=== PATIENT | female | born 1955 | race Caucasian/White ===

== ENCOUNTER → 2017-01-18 | Outpatient (CLI) | payer OTHER | LOC: CIMAGING 12:27 | DX: Z12.31 Encounter for screening mammogram for malignant neoplasm of breast (principal) | CPT/HCPCS: G0202 ==

== ENCOUNTER → 2017-02-23 | Outpatient (CLI) | payer OTHER | LOC: CIMAGING 12:44 | DX: N63 Unspecified lump in breast (principal) | CPT/HCPCS: 76641-PO; G0206 ==

== ENCOUNTER → 2017-03-28 | Outpatient (CLI) | payer OTHER ==
[~2017-03-28] MED LIST: BUPIVACAINE 0.5% 10 ML SDV ONE; LIDO/EPI 1% **Not for Epidural 20 ML MDV ONE; LIDOCAINE 1% 300 MG/30 ML SDV ONE; THROMBIN (BOVINE) 5,000 UNIT VIAL TP ONE
== END ==
LOC: FIMAGING 08:27
PROVIDERS: ATTEND Family Medicine
PROC: 0HBU3ZX Excision of Left Breast, Percutaneous Approach, Diagnostic (ICD-10-PCS; principal; 2017-03-28)
DX: D05.12 Intraductal carcinoma in situ of left breast (principal)
CPT/HCPCS: G0206

== ENCOUNTER 2017-04-04 06:26 | Day surgery (SDC) | payer OTHER ==
[2017-04-04] MEDS ORDERED: LIDOCAINE 1% 2 ML INJ ONE (07:27)
[2017-04-04] MEDS ORDERED: LIDOCAINE 1% 2 ML INJ ID PRN (07:36)
[2017-04-04] MEDS ORDERED: LR 1,000 ML IV ONE (07:36)
[2017-04-04] MEDS ORDERED: LIDOCAINE 1% 300 MG/30 ML SDV ONE (07:39)
--- NOTE | 2017-04-04 08:12 | GHP ---
[f rep st] PREOP HISTORY AND PHYSICAL DATE OF ADMISSION: 04/04/2017 PREOPERATIVE DIAGNOSIS: Left breast cancer. HISTORY OF PRESENT ILLNESS: The patient is a 62-year-old woman who presented with a new diagnosis o f left breast cancer. A suspicious lesion of the left upper outer breast was seen on screening mamm ogram on 01/16/2017. Diagnostic mammogram and ultrasound on 02/23/2017 showed a correlating nodule in the 12 o'clock position 1 cm from the nipple. 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 She has a family history of breast cancer in her maternal grandmother, who was diagnosed at age 80. Her mother had uterine cancer. Her father had esophageal cancer. She first menstruated at age 12, last menses at age 51. She has never taken hormone replacement therapy. She is G3, P1, age 24 at her first . PAST MEDICAL HISTORY: Depression, hyperlipidemia, hypertension, insomnia, ALLERGIES: No known drug allergies. FAMILY HISTORY: As above. Also significant for heart disease. SOCIAL HISTORY: She reports occasional alcohol use. She denies current tobacco or recreational tyson g use. She is with 1 daughter. REVIEW OF SYSTEMS: A 10-point review of systems is negative aside from HPI. PHYSICAL EXAMINATION: GENERAL: Well-developed, well-nourished woman in no acute distress, accompan ied by . HEENT: Normocephalic, atraumatic. No hearing deficits. Pupils equal and round. No scleral icterus. Mucous membranes moist. NECK: Trachea midline. RESPIRATORY: Clear to auscul tation bilaterally. No increased work of breathing. CARDIOVASCULAR: Regular rate and rhythm. No peripheral edema. SKIN: Warm and dry. MUSCULOSKELETAL: Normal gait. Normal nails. PSYCH: Mood and affect normal. BREASTS: Exam performed in both upright and supine positions. Symmetric bilat erally. Evidence of biopsy of left superior breast. Good symmetry. No palpable masses identified. LYMPH: No cervical, supraclavicular, axillary lymphadenopathy. NEURO: Grossly intact. IMPRESSION AND PLAN: The patient is a 62-year-old woman with a left breast invasive ductal carcinom a of the upper outer quadrant. We discussed lumpectomy with sentinel lymph node biopsy. We discuss ed risks of surgery including but not limited to heart attack, stroke, blood clots, or . We di scussed risk of infection, bleeding, alteration in cosmesis, recurrence, need for additional procedu res, and lymphedema. She understands the risks and would like to proceed. She understands that if the sentinel lymph node biopsy is positive, then an axillary dissection is indicated. She does not want a preop MRI or genetic counseling. She will be seen by Dr. Booth postoperatively. The [facility] ent was additionally seen by Dr. Melissa Bazzi. /[id number]/MODL
[2017-04-04] MEDS ORDERED: BUPIVACAINE 0.5% 30 ML SDV ONE (10:32)
[2017-04-04] MEDS ORDERED: ceFAZolin 2 GM/DEXTROSE 100 ML IV ONE (10:41)
--- NOTE | 2017-04-04 11:22 | PDHPUP ---
History & Physical Update H&P update statement: This history and physical update is based on an assessment of the patient which was completed after admission or registration (within 24 hours), but prior to the surgery/procedure. H&P update: H&P reviewed & patient examined, no change in patient's condition since H&P completed
[2017-04-04] MEDS ORDERED: MIDAZOLAM 2 MG/2 ML VIAL IVP ONE (11:50)
--- NOTE | 2017-04-04 11:50 | PDANEPAE ---
ANE History of Present Illness breast mass excision ANE Past Medical History - Cardiovascular History Hx Hypertension: Yes Hx Arrhythmias: Yes Hx Chest Pain: No Hx Coronary Artery / Peripheral Vascular Disease: No Hx CHF / Valvular Disease: No Hx Palpitations: Yes - Pulmonary History Hx COPD: No Hx Asthma/Reactive Airway Disease: No Hx Recent Upper Respiratory Infection: No Hx Oxygen in Use at Home: No Hx Sleep Apnea: No - Neurologic History Hx Cerebrovascular Accident: No Hx Seizures: No Hx Dementia: No - Endocrine History Hx Diabetes: No - Renal History Hx Renal Disorders: No - Liver History Hx Hepatic Disorders: No - Neurological & Psychiatric Hx Hx Neurological and Psychiatric Disorders: Yes Neurological / Psychiatric History Comment: Depression/anxiety - Cancer History Hx Cancer: No - Congenital Disorder History Hx Congenital Disorders: No - GI History Hx Gastrointestinal Disorders: No - Chronic Pain History Chronic Pain: No - Surgical History Prior Surgeries: Laparoscopy, ANE Review of Systems - Exercise capacity METS (RN): 5 METS ANE Patient History - Allergies Allergies/Adverse Reactions: No Known Allergies Allergy (Unverified 04/14/15 12:56) - Home Medications Home Medications: Chlorthalidone [Chlorthalidone 25 mg (*)] 12.5 mg PO DAILY 04/04/17 [Last Taken 04/03/17] DULoxetine [Cymbalta 60 MG (*)] 60 mg PO DAILY 04/04/17 [Last Taken 04/03/17] Herbals/Supplements -Info Only 1 ea PO DAILY 04/04/17 [Last Taken 04/03/17] Loratadine [Claritin 10 mg] 10 mg PO DAILY 04/04/17 [Last Taken 04/03/17] Losartan Potassium [Cozaar] 100 mg PO DAILY 04/04/17 [Last Taken 04/03/17] Metoprolol Succinate Xr [Toprol Xl 50 mg (*)] 50 mg PO DAILY 04/04/17 [Last Taken 04/03/17] Multivitamin [Multi-Vitamin Daily] 1 each PO DAILY 04/04/17 [Last Taken 04/03/17 ] Zolpidem Tartrate [Ambien 10 mg] 10 mg PO HS 04/04/17 [Last Taken 04/03/17 22:00 ] - NPO status NPO Since - Liquids (Date): 04/03/17 NPO Since - Liquids (Time): 23:00 NPO Since - Solids (Date): 04/03/17 NPO Since - Solids (Time): 22:00 - Anes Hx Anes Hx: no prior problems - Smoking Hx Smoking Status: Former smoker - Family Anes Hx Family Hx Anesthesia Complications: None ANE Labs/Vital Signs - Vital Signs Blood Pressure: 148/94 Heart Rate: 58 Respiratory Rate: 18 O2 Sat (%): 92 Height: 167.64 cm Weight: 93.894 kg ANE Physical Exam - Airway Mallampati Score: Class 2 Mouth exam: normal dental/mouth exam - Pulmonary Pulmonary: no respiratory distress - Cardiovascular Cardiovascular: regular rate and rhythym - ASA Status ASA Status: II ANE Anesthesia Plan Anesthesia Plan: GA w LMA
[2017-04-04] MEDS ORDERED: ONDANSETRON 4 MG/2 ML VIAL ONE (11:54)
[2017-04-04] MEDS ORDERED: DEXAMETHASONE 4 MG/ML VIAL ONE (11:54)
[2017-04-04] MEDS ORDERED: KETOROLAC 30 MG/1 ML SDV ONE (11:54)
[2017-04-04] MEDS ORDERED: PROPOFOL 200 MG/20 ML VIAL ONE (11:55)
[2017-04-04] MEDS ORDERED: LIDOCAINE 2% 5 ML SDV ONE (11:55)
[2017-04-04] MEDS ORDERED: fentaNYL 100 MCG/2 ML INJ ONE (11:55)
[2017-04-04] MEDS ORDERED: HYDROmorphONE/DILAUDID 1 MG/ML SYR IVP PRN (12:26)
[2017-04-04] MEDS ORDERED: fentaNYL 100 MCG/2 ML INJ IVP PRN (12:26)
[2017-04-04] MEDS ORDERED: MEPERIDINE 25 MG/ML SYR IVP PRN (12:26)
[2017-04-04] MEDS ORDERED: NALOXONE HCL 0.4 MG/ML INJ IVP PRN (12:26)
[2017-04-04] MEDS ORDERED: LR 500 ML IV PRN (12:26)
[2017-04-04] MEDS ORDERED: ONDANSETRON 4 MG/2 ML VIAL IVP PRN (12:26)
[2017-04-04] MEDS ORDERED: epHEDrine SULFATE 10 MG/ML SYR ONE (12:50)
--- NOTE | 2017-04-04 13:00 | POSTOPPROG ---
Post Op Note Date of Operation: 04/04/17 Surgeon: Melissa Bazzi [employer] Dispatcher: denita Anesthesiologist: adia Anesthesia: GET(General Endotracheal) Pre-op Diagnosis: l invasive ductal breast ca Post-op Diagnosis: l invasive ductal breast ca Indication: 62 yo with l breast cancer Procedure: l lumpectomy l sln Findings: target in the specimen Inf/Abcess present in the surg proc area at time of surgery?: No EBL: Minimal Specimen(s): lumpectomy and sln
--- NOTE | 2017-04-04 13:09 | POSTANESTH ---
Post Anesthetic Evaluation Cardiovascular Status: Normal, Stable Respiratory Status: Normal, Stable Level of Consciousness/Mental Status: Can Participate in Eval Pain Control: Adequate, Prn Tx Ordered Nausea/Vomiting Control: Adequate, Prn Tx Ordered Complications Possibly Related to Anesthesia: None Noted
[2017-04-04 14:04] VITALS: PULSE 65; TEMP 97.9
--- NOTE | 2017-04-04 14:13 | GOP ---
[f rep st] OPERATIVE REPORT DATE OF OPERATION: 04/04/2017 SURGEON: Melissa Bazzi MD CLERK ANALYST: Essence Bazan, HUAN ANESTHESIA: General. ANESTHESIOLOGIST: Javan Moreno MD PREOPERATIVE DIAGNOSIS: Left breast invasive ductal carcinoma upper outer quadrant POSTOPERATIVE DIAGNOSIS: Left breast invasive ductal carcinoma upper outer quadrant. PROCEDURE PERFORMED: Left needle localized lumpectomy, left sentinel lymph node. FINDINGS: Targeted area contained within specimen and negative sentinel lymph node. ESTIMATED BLOOD LOSS: 20 cc. INDICATIONS: The patient is a 62-year-old woman with left breast invasive ductal carcinoma. DESCRIPTION OF PROCEDURE: The patient was brought into the operating room, placed supine on the table, and general anesthesia was administered. Her breast and axilla were prepped and draped in the usual sterile fashion. I made an ellipse around the wire. I created superior and inferior skin flaps. I dissected down beyond the level of the wire. The specimen was removed. It was marked green anterior, red superior, yellow medial, blue inferior, orange lateral, black posterior. This was sent to Radiology and the targeted area was contained within the specimen. Hemostasis was achieved in the cavity. Next, I made an incision beneath the hair-bearing portion of her left axilla. I dissected down through the subcutaneous space. I broke into the axillary space. I used the sentinel node probe to identify the sentinel lymph node. I circumferentially dissected this. It measured greater than 1000 ex vivo and the background was quiet. Hemostasis was achieved. Next, I took margins from the lumpectomy cavity, superior ink red, medial ink yellow, inferior ink blue, lateral ink orange, posterior black. I was down to the level of the fascia. These were sent to Pathology for permanent. The sentinel lymph node returned negative. Clips were placed in the lumpectomy bed. The lumpectomy cavity was closed in layers with 3-0 Vicryl. Skin closed with 4-0 Monocryl. Mastisol, Steri-Strips, and sterile dressings were applied. She was awakened in the operating room, extubated, transferred to PACU in stable condition. I spoke with her by phone after the case. FINDINGS: Clip within the specimen. Negative lymph node. /[id number]/MODL MTDD
[2017-04-04 15:17] VITALS: BP 131/78; RESP 16; O2SAT 91
== END 2017-04-04 15:20 | disposition home or self-care (01) ==
LOC: FIMAGING 06:26
PROVIDERS: ATTEND Surgery
PROC: 07B63ZX Excision of Left Axillary Lymphatic, Percutaneous Approach, Diagnostic (ICD-10-PCS; principal; 2017-04-04 12:00)
PROC: 0HBU3ZZ Excision of Left Breast, Percutaneous Approach (ICD-10-PCS; principal; 2017-04-04 12:00)
DX: C50.412 Malignant neoplasm of upper-outer quadrant of left female breast (principal); Z80.3 Family history of malignant neoplasm of breast; I10 Essential (primary) hypertension; E78.5 Hyperlipidemia, unspecified
CPT/HCPCS: A9520; J0690; J1100; J1885; J2250; J2405; J2704; J3010

== ENCOUNTER 2017-07-30 01:16 | Inpatient (IN) | payer OTHER ==
[2017-07-30] MEDS ORDERED: NS 2,800 ML IV ONE ×2 (01:48)
[2017-07-30] MEDS ORDERED: PROMETHAZINE HCL 25 MG/ML INJ IVP ONE ×2 (01:50)
--- NOTE | 2017-07-30 01:55 | EDPHY ---
H & P Stated Complaint: fever, syncope, vomiting Time Seen by Provider: 07/30/17 01:27 HPI/ROS: HPI The patient presents with fever, cough, sore throat, vomiting, syncope. She had chemo on July 18 and since then has not been feeling well. She has had some vomiting and syncope. Then over the last 2 days she developed a fever with T-max of 102.4 degrees F. She took Tylenol about 2 hours ago. She has had a sore throat, hoarse voice, cough productive of sputum in a similar time course. She says she is spitting up quite a bit and is unable to keep much fluid down. She says when she spits up like this she gets lightheaded and has syncopized about 4 times in the last 10 days, most recently had an episode in which she awoke with her head in her emesis bucket. She has not had a flu shot this year. She denies any sick contacts except for a friend that brought food over to her house. She has been taking Compazine, Zofran, Phenergan for vomiting, however her vomiting persists. Yesterday, she was prescribed Augmentin for her fever by Dr. Romero credit collection specialist for Dr. Booth. REVIEW OF SYSTEMS Constitutional: No fever, no chills. Eyes: No discharge. ENT: No sore throat. Cardiovascular: No chest pain, no palpitations. Respiratory: No cough, no shortness of breath. Gastrointestinal: No abdominal pain, no vomiting. Genitourinary: No hematuria. Musculoskeletal: No back pain. Skin: No rashes. Neurological: No headache. PMHx: Breast cancer on chemotherapy, hypertension, depression Soc Hx: Lives at home with her partner PHYSICAL General Appearance: Alert, pale and tired appearing Eyes: Pupils equal and round no pallor or injection ENT, Mouth: Mucous membranes moist, posterior pharynx is pale, no exudates are present Respiratory: There are no retractions, lungs are clear to auscultation Cardiovascular: Regular rate and rhythm Gastrointestinal: Abdomen is soft and non-tender, no masses, bowel sounds normal Neurological: A&O, moves all extremities Skin: Warm and dry, no rashes Musculoskeletal: Neck is supple non tender Extremities: symmetrical, full range of motion Psychiatric: Patient is oriented X 3, there is no agitation Source: Patient Exam Limitations: No limitations - Personal History Tetanus Vaccine Date: WITHIN 10 YRS - Medical/Surgical History Hx Asthma: No Hx Chronic Respiratory Disease: No Hx Diabetes: No Hx Cardiac Disease: No Hx Renal Disease: No Hx Cirrhosis: No Hx Alcoholism: No Hx HIV/AIDS: No Hx Splenectomy or Spleen Trauma: No Other PMH: HTN, DEPRESSION, breast ca - Social History Smoking Status: Former smoker Constitutional: Initial Vital Signs Temperature (C) 38.4 C H 07/30/17 01:21 Heart Rate 95 07/30/17 01:21 Respiratory Rate 20 07/30/17 01:21 Blood Pressure 119/73 07/30/17 01:21 O2 Sat (%) 95 07/30/17 01:21 O2 Delivery Mode Nasal Cannula O2 (L/minute) 2 Allergies/Adverse Reactions: No Known Allergies Allergy (Unverified 07/30/17 01:19) Home Medications: Medication Instructions Recorded Chlorthalidone [Chlorthalidone 25 12.5 mg PO DAILY 04/04/17 mg (*)] DULoxetine [Cymbalta 60 MG (*)] 60 mg PO DAILY 04/04/17 Herbals/Supplements -Info Only 1 ea PO DAILY 04/04/17 Hydrocodone/APAP 5/325 [[place] 1 each PO Q4H PRN #15 tab 04/04/17 5/325 (*)] LORazepam [Ativan] 1 mg PO BID PRN #30 tablet 04/04/17 Loratadine [Claritin 10 mg] 10 mg PO DAILY 04/04/17 Losartan Potassium [Cozaar] 100 mg PO DAILY 04/04/17 Metoprolol Succinate Xr [Toprol Xl 50 mg PO DAILY 04/04/17 50 mg (*)] Multivitamin [Multi-Vitamin Daily] 1 each PO DAILY 04/04/17 Zolpidem Tartrate [Ambien 10 mg] 10 mg PO HS 04/04/17 Medical Decision Making - Diagnostics EKG Interpretation: EKG: Complete interpretation has been separately recorded in the [employer] archive. Summary impression: T-wave flattening in 2, 3, V4 through V6 Imaging Results: Chest x-ray two view shows no infiltrate, no cardiomegaly, no effusion, interpreted by me, radiology interpretation is pending. Differential Diagnosis: 62-year-old female, history of breast cancer on chemotherapy, last chemotherapy about 12 days ago presents with 2 days of fever, cough, hoarseness, vomiting and multiple syncopal episodes. On arrival, she is febrile, mildly tachycardic , appears dehydrated. Differential diagnosis includes neutropenic fever, influenza, pneumonia, intra- abdominal sepsis, viral illness. In the emergency department, the patient was given a fluid bolus. She was given Phenergan for her nausea. Labs were checked and did reveal neutropenia with mild dehydration. Influenza PCR was negative. Chest x-ray was unremarkable for infiltrate. The patient felt better after receiving IV fluids, because of her neutropenia, she was given a dose of cefepime. I plan to admit her to the hospitalist service and discussed the case with Dr. Portillo. - Data Points Laboratory Results: Laboratory Results 07/30/17 01:40 07/30/17 01:40 07/30/17 07/30/17 07/30/17 02:25 01:40 01:40 WBC RBC Hgb Hct MCV MCH MCHC RDW Plt Count MPV Neut % (Auto) Lymph % (Auto) [place] % (Auto) Eos % (Auto) Baso % (Auto) Nucleat RBC Rel Count Absolute Neuts (auto) Absolute Lymphs (auto) Absolute Monos (auto) Absolute Eos (auto) Absolute Basos (auto) Absolute Nucleated RBC Immature Gran % Seg Neutrophils % Band Neutrophils % Lymphocytes % Monocytes % Immature Gran # Absolute Seg Neuts Absolute Band Neuts Absolute Lymphocytes Absolute Monocytes RBC/WBC/PLT Morphology Platelet Estimate Smear Review By [facility] Lactic Acid 1.4 mmol/L mmol/L (0.7-2.1) Sodium 139 mEq/L mEq/L (134-144) Potassium 3.4 mEq/L L mEq/L (3.5-5.2) Chloride 102 mEq/L mEq/L (97-110) Carbon Dioxide 21 mEq/l L mEq/l (22-31) Anion Gap 16 mEq/L mEq/L (8-16) BUN 14 mg/dL mg/dL (7-23) Creatinine 0.9 mg/dL mg/dL (0.6-1.0) Estimated GFR > 60 Glucose 116 mg/dL H mg/dL (70-100) Calcium 9.1 mg/dL mg/dL (8.5-10.4) Nasal Influenza A PCR NEGATIVE FOR FLU A (NEGATIVE) Nasal Influenza B PCR NEGATIVE FOR FLU B (NEGATIVE) 07/30/17 01:40 WBC 1.03 10^3/uL L 10^3/uL (3.80-9.50) RBC 4.00 10^6/uL L 10^6/uL (4.18-5.33) Hgb 12.4 g/dL L g/dL (12.6-16.3) Hct 35.7 % L % (38.0-47.0) MCV 89.3 fL fL (81.5-99.8) MCH 31.0 pg pg (27.9-34.1) MCHC 34.7 g/dL g/dL (32.4-36.7) RDW 13.8 % % (11.5-15.2) Plt Count 272 10^3/uL 10^3/uL (150-400) MPV 9.7 fL fL (8.7-11.7) Neut % (Auto) Not Reported Lymph % (Auto) Not Reported [place] % (Auto) Not Reported Eos % (Auto) Not Reported Baso % (Auto) Not Reported Nucleat RBC Rel Count 0.0 % % (0.0-0.2) Absolute Neuts (auto) Not Reported Absolute Lymphs (auto) Not Reported Absolute Monos (auto) Not Reported Absolute Eos (auto) Not Reported Absolute Basos (auto) Not Reported Absolute Nucleated RBC 0.00 10^3/uL 10^3/uL (0-0.01) Immature Gran % Not Reported Seg Neutrophils % 9 % % Band Neutrophils % 5 % % Lymphocytes % 32 % % Monocytes % 54 % % Immature Gran # Not Reported Absolute Seg Neuts 0.09 10^/uL L 10^/uL (1.70-6.50) Absolute Band Neuts 0.05 10^3/uL 10^3/uL (0.00-0.70) Absolute Lymphocytes 0.33 10^3/uL L 10^3/uL (1.00-3.00) Absolute Monocytes 0.56 10^3/uL 10^3/uL (0.30-0.80) RBC/WBC/PLT Morphology NORMAL (NORMAL) Platelet Estimate ADEQUATE (ADEQ) Smear Review By Pending VBG Lactic Acid Sodium Potassium Chloride Carbon Dioxide Anion Gap BUN Creatinine Estimated GFR Glucose Calcium Nasal Influenza A PCR Nasal Influenza B PCR Medications Given: Discontinued Medications Sodium Chloride (Ns) 2,800 mls @ 5,600 mls/hr 30 ml/kg infuse over 30 min ( 2800 ml) IV EDNOW ONE PRN Reason: Protocol Stop: 07/30/17 02:17 Last Admin: 07/30/17 02:09 Dose: 2,800 mls Ketorolac Tromethamine (Toradol) 15 mg IVP EDNOW ONE Stop: 07/30/17 03:06 Last Admin: 07/30/17 03:10 Dose: 15 mg Promethazine HCl (Phenergan) 12.5 mg IVP ONCE ONE Stop: 07/30/17 01:51 Last Admin: 07/30/17 02:01 Dose: 12.5 mg Departure - Departure Disposition: [facility] Inpatient Acute Clinical Impression: Neutropenic fever Condition: Fair Referrals: Scarlet Boudreaux MD [Primary Care Provider] - As per Instructions
[2017-07-30 02:02] LABS: PLATELET COUNT 272 10^3/uL (150-400)
[2017-07-30] MEDS ORDERED: CEFEPIME HCL 2 GM in D5W 100 ML IV ONE (03:01)
[2017-07-30] MEDS ORDERED: KETOROLAC 15 MG/1 ML SDV IVP ONE ×2 (03:05)
[2017-07-30] MEDS ORDERED: KETOROLAC 15 MG/1 ML SDV ONE ×2 (03:06)
--- NOTE | 2017-07-30 03:19 | CPEKG ---
Heart Rate: 83 RR Interval: 723 P-R Interval: 196 QRSD Interval: 90 QT Interval: 332 QTC Interval: 390 P [place]: 47 QRS [place]: 1 T Wave [place]: 47 EKG Severity - BORDERLINE ECG - EKG Impression: SINUS RHYTHM EKG Impression: BORDERLINE T ABNORMALITIES, ANT-LAT LEADS Electronically Signed By: Maine Encarnacion 30-Jul-2017 07:05:55
[2017-07-30] MEDS ORDERED: ONDANSETRON 4 MG/2 ML VIAL IVP PRN ×2 (04:18)
[2017-07-30] MEDS ORDERED: HYDROmorphONE/DILAUDID 1 MG/ML INJ IVP PRN ×2 (04:18)
[2017-07-30] MEDS ORDERED: LORazepam 2 MG/ML INJ IVP PRN ×2 (04:18)
[2017-07-30] MEDS: NS 1,000 ML IV SCH ×4 (05:23→15:46)
[2017-07-30] MEDS ORDERED: ZOLPIDEM TARTRATE 5 MG TAB PO PRN ×2 (05:33)
--- NOTE | 2017-07-30 06:46 | GHP ---
[f rep st] HISTORY AND PHYSICAL DATE OF ADMISSION: 07/30/2017 SOURCE: Patient provides history, appears reliable. Her EMR was also reviewed and case discussed wi th ED provider. CHIEF COMPLAINT: Nausea, vomiting, fever, and syncope. HISTORY OF PRESENT ILLNESS: This is a very pleasant 62-year-old female with past medical history sig nificant for invasive ductal carcinoma of the left breast, who is on her 3rd cycle of chemotherapy, w hich she cannot recall regimen. Presents with complaints of 1-2 days of fevers. The patient reports that her T-max at home was 102.4. She states that she has not been feeling well since her chemother apy on July 18. Patient notes fatigue, decreased appetite, nausea and vomiting, that has been d ifficult to control despite use of home medications including Compazine, Zofran, and Phenergan. The patient also notes cough, rhinorrhea, and sore throat with some laryngitis and hoarseness. She has a lso had a persistent cough that is productive of clear sputum. Also, in the last several weeks, [facility] ent reports episodes of syncope occurring while patient is either vomiting, in the process of vomitin g, or developing GI upset. The patient reports that she has fallen and hit the back of her head a we ek ago. She states that at that time she was also feeling nauseous, as though she was going to throw up. The patient denies any lightheadedness. She has been having some shortness of breath with cleo g up the stairs, but otherwise with ambulation. She does not report any other shortness of breath. The patient denies any known sick contacts. The day prior to admission, patient called the on-call patrick lay for [facility] and received a prescription for Augmentin, but she has not been able to keep any me dications down. REVIEW OF SYSTEMS: Positive for fevers. No chills or sweats. ENT: The patient reports sore throat , hoarseness. No current rhinorrhea. EYES: No acute changes in vision or ocular pain. SKIN: [facility] ent reports dermatitis at site of chemotherapy infusion, but no other rashes or sores. Patient repor ts this is healing and drying. GI: Positive for nausea, vomiting. No hematemesis, diarrhea, melena , or hematochezia. : No dysuria or hematuria. RESPIRATORY: As noted above in HPI. NEURO: Nonf ocal. No numbness, tingling, syncopal episodes as noted above. PSYCH: Patient reports history of a nxiety and depression, but this has been controlled. Remainder of review of systems negative, except as noted above. ALLERGIES: No known drug allergies. HOME MEDICATIONS: Reviewed with the patient. Ambien 10 mg p.o. at bedtime, acyclovir 400 mg p.o. tw ice daily, multivitamin 1 tab p.o. daily, metoprolol succinate 50 mg p.o. daily, losartan, potassium 100 mg p.o. daily, loratadine 10 mg p.o. daily, Lorazepam 1 mg p.o. twice daily p.r.n., [place] 5/325 o ne tablet p.o. q.4 hours p.r.n., Cymbalta 60 mg p.o. daily, and chlorthalidone 12.5 mg p.o. daily. PAST MEDICAL HISTORY: Invasive ductal carcinoma diagnosed in March 2017, status post lumpectomy on 3r d course of chemotherapy, benign essential hypertension, depression, and allergies. PAST SURGICAL HISTORY: Significant for lumpectomy in 2017 and history of colonoscopy. FAMILY HISTORY: Maternal grandmother with breast cancer in 80s. Family history of CAD. Mother with history of uterine cancer. Father with history of esophageal cancer. Daughter with history of ment al health and substance abuse issues. SOCIAL HISTORY: The patient is , lives at home with her . She has a remote history of tobacco use. Denies any current use. No alcohol or drug use. CODE STATUS: Full. Patient without advanced directives, but she would like her to act as pr oxy if needed. PHYSICAL EXAMINATION: VITAL SIGNS: Upon arrival to the ER, blood pressure 119/73, heart rate 95, re spiratory rate 20, O2 saturation 95% on room air with a temperature of 38.4. Vitals at time of inter view, blood pressure 120/69, heart rate 77, respiratory rate 16, O2 saturation 96% on 2 L by nasal ca nnula. GENERAL: No acute distress. Very pleasant adult female is lying in bed quietly, appears fat igued, pale, chronically ill, but in good spirits. HEENT: Normocephalic, atraumatic. Patient with thinned hair. EYES: Extraocular muscles grossly intact. No scleral icterus or conjunctival injecti on. Pupils equal and symmetric. ENT: Mucous membranes appear dry. No oropharyngeal erythema or ex udates. Dentition intact. NECK: Supple. Trachea midline. CV: Regular rate and rhythm. There is a very faint murmur along sternal border, but limited exam secondary to body habitus and heart rate. ABDOMEN: Obese, soft, nontender to palpation. No rebound, guarding, or masses appreciated. : No suprapubic tenderness to palpation. No Noriega catheter in place. EXTREMITIES/MUSCULOSKELETAL: Pa tient with generalized weakness, but moving all extremities. Sits up independently. NEURO: Grossly nonfocal. No facial drooping. Patient awake, alert, and oriented x3. Moves all extremities. PSYC H: Thought process content and questions are appropriate. Patient smiles intermittently. In good s pirits. LABORATORY STUDIES: WBC is 11.03, H and H 12.4 and 35.7, MCV 89.3, platelet count is 272. No bands. Absolute neutrophil count is 0.09. VBG, lactic acid 1.4. Sodium is 139, potassium 3.4, chloride 102, CO2 21, anion gap 16, BUN 14, creatinine is 0.9, GFR grea ter than 60, glucose 116, calcium 9.1. Urine color is clear, yellow, with pH of 6.0, specific gravit y 1.008, blood 1+, trace ketones, 3-5 RBCs with 1-3 WBCs, otherwise negative. Flu A/B is negative. Blood cultures x2 pending. Nasal swab for respiratory panel pending. Urine cl peter-catch culture pending. STUDIES: EKG I reviewed myself showing normal sinus rhythm in the 80s without any acute ST changes, nonspecific T-wave changes in the anterolateral leads. Chest x-ray I reviewed myself appears clear. ASSESSMENT AND PLAN: A very pleasant 62-year-old female with history of invasive ductal breast carci noma, who presents to the emergency department today with complaints of nausea, vomiting, syncope and fevers up to 102 at home. Patient undergoing chemotherapy. 1. Neutropenic fever, which has resolved at this time. Patient is status post cefepime in the emerg ency department. We will plan to continue. She did meet systemic inflammatory response syndrome cri teria with a leukopenia and fever, tachycardia, however, currently everything is resolved at this autumn e, so we will continue to monitor closely and her lactate is within normal limits. Will also continu e with acyclovir at this time. Patient reporting nausea, which is slowly improving, but does not fee l she will be able to keep anything down, so acyclovir IV has been ordered for her suppressive therap y. 2. Anemia, likely related to chemotherapy. We will continue to monitor. No evidence of active blee ding. 3. Syncope. Sounds like this is vasovagal, as the patient reports that she developed some nausea or is in the midst of vomiting when she has episodes of syncope. She denies any positional lightheaded ness or presyncope, and currently denies any headache, changes in vision, focal deficits or confusion . If any acute changes, will plan to obtain a CT scan, but at this time, we will monitor clinically. Orthostatic blood pressures have also been ordered. 4. Nausea and vomiting have improved status post IV Phenergan. Patient desires to continue this. W ill also make available Zofran, Ativan and Benadryl, if needed. 5. Dehydration. Intravenous fluids overnight. 6. Breast cancer, completed chemotherapy on 07/18. Will consult Oncology for assistance. 7. Depression. Resume Cymbalta. 8. Benign essential hypertension. At this time, blood pressures are acceptable. We will obtain agustin e orthostatic blood pressures. Will place patient on hydralazine p.r.n. for right now, and will william tor patient's blood pressures. 9. Hypokalemia. Replacement will be ordered. 10. Fluids, electrolytes and nutrition. Intravenous fluids with normal saline overnight, advance di et if tolerated. 11. Prophylaxis. Sequential compression devices, holding anticoagulation in setting of anemia and i ncreased risk for bleeding. 12. Code status is full. Patient desires her to act as proxy if needed. 13. Disposition. Patient has been admitted to inpatient status on the oncology floor and anticipate greater than 2 midnight stay given severity of her neutropenia and fevers. /[id number]/MODL
--- NOTE | 2017-07-30 08:03 | PDMN ---
Medical Necessity Medical necessity: C/M review: Patient meets INPT criteria under MCG M-370 Vomiting; Acute neutrapenic fever, acute syncope, acute and persistent nausea / vomiting, dehydration, anemia, WBC 1.03, hypokalemia, K 3.4, requiring planned Oncology consult, ongoing IV Acyclovir 8 hrs., IV Cefepime Q8 hrs., IV NS 125 ml/hr, acute inpt PT/OT, comorbid breast cancer diagnosed 03/2017 S/P lumpectomy and 3rd course of chemotherapy 07/18/2017, depression. anticipates > 2 MN LOS for ongoing med nec for eval and TX of above.
[2017-07-30] MEDS ORDERED: LOSARTAN POTASSIUM 50 MG TAB PO SCH ×2 (09:00)
[2017-07-30] MEDS ORDERED: ACYCLOVIR 350 MG in D5W 100 ML IV SCH (09:00)
[2017-07-30] MEDS: PROMETHAZINE HCL 25 MG/ML INJ IVP PRN ×4 (10:12→21:57)
[2017-07-30] MEDS: DULoxetine 60 MG CAP PO SCH ×2 (10:16)
[2017-07-30] MEDS ORDERED: oxyCODONE IR 5 MG TAB PO PRN ×2 (10:31)
[2017-07-30] MEDS ORDERED: guaiFENesin 200 MG TAB PO PRN ×2 (10:36)
[2017-07-30] MEDS ORDERED: DULoxetine 60 MG CAP PO SCH ×2 (10:45)
--- NOTE | 2017-07-30 10:51 | HOSPPROG ---
Hospitalist Progress Note Assessment/Plan: #Neutropenic fever: + parainfluenza. Supportive care, cough suppressant. Cont IV Cefepime until cultures back #Hypokalemia: replete. Check mag #Syncope: here and at home while retching. Denies CP/SOB, no known heart disease. Check EKG, trop. Orthostatics normal #HTN: stable for now. Readd home meds if elevated #Invasive ductal breast cancer: last chemo 12 days ago. H/H stable. PPx valcyclovir #Seasonal allergies: loratadine #Depression: Cymbalta #Diet: regular #DVT ppx: SCDs #Disp: warrants inpatient admission with hypokalemia, neutropenic fever, requires IV abx, fluids Subjective: sore throat, gagged and had LOC for few seconds. No CP or SOB Objective: Vital Signs Temp Pulse Resp BP Pulse Ox 37.8 C 85 20 142/78 H 93 07/30/17 10:20 07/30/17 10:20 07/30/17 10:20 07/30/17 10:20 07/30/17 10:20 07/29/17 07/30/17 07/31/17 05:59 05:59 04:59 Intake Total 212 Output Total 10 Balance 2119 - Physical Exam Constitutional: obese, other (pale) Eyes: PERRL Ears, Nose, Mouth, Throat: dry mucous membranes, other (no exudate, ulcers) Cardiovascular: regular rate and rhythym, No no murmur, rub, or gallop, No edema Respiratory: no respiratory distress, no rales or rhonchi Gastrointestinal: normoactive bowel sounds, soft, non-tender abdomen, No tenderness Genitourinary: no bladder fullness Skin: warm, normal color Musculoskeletal: full muscle strength Neurologic: AAOx3 Psychiatric: interacting appropriately ICD10 Worksheet Patient Problems: Problems Problem Status Onset Neutropenic fever Acute
--- NOTE | 2017-07-30 11:22 | GCON ---
[f rep st] CONSULTATION HISTORY OF PRESENT ILLNESS: The patient is a very pleasant 62-year-old female. She was diagnosed with right-sided breast cancer in February of 2017. This was a T1c triple negative breast carcinoma. She has been receiving TC chemotherapy and received her 3rd cycle on 07/18. Since then, she has felt poorly. She has had some fainting episodes associated with nausea. She has occasional dizziness. Over the last couple days, she has developed sinus congestion, laryngitis and a low-grade fever. Augmentin was called in, but she was unable to tolerate oral medication. She came to the emergency room last night and was noted to be febrile, neutropenic and was admitted for further evaluation. Currently, she complains of a sore throat, laryngitis and became faint this morning when she attempted to throw up. PAST MEDICAL HISTORY: Significant for invasive ductal carcinoma diagnosed summer. She also has history of benign essential hypertension, depression, and allergies. FAMILY HISTORY: Significant for breast cancer in a maternal grandmother. She is . PHYSICAL EXAMINATION: GENERAL: She is a pleasant, alert female. VITAL SIGNS: Blood pressure 142/78, temperature 100.1, respiratory rate 20. HEENT: She is not Icteric. Pharynx is unremarkable. I detect no palpable adenopathy. LUNGS: Clear. CARDIAC: Unremarkable. ABDOMEN: Benign. EXTREMITIES: Are unremarkable. NEUROLOGIC: Nonfocal. She does not have a subcutaneous port. LAB: Current white count is 1000, ANC is 0.09, hemoglobin 12.4, hematocrit 35.7 , platelets are 272,000. Chest x-ray on admission is normal. EKG shows borderline T abnormalities in the anterolateral leads. Potassium slightly low at 3.4. Respiratory panel is positive for parainfluenza virus. IMPRESSION: The patient is neutropenic. She has parainfluenza, which would be , I think, consistent with most of her symptoms. She has been started on cefepime, which I think is appropriate given her neutropenic state. She is having some syncope, which seems to be vagal, stimulated by nausea and I think this will need to be followed. She is on antihypertensive, but her blood pressure is running a bit high at this time. Blood cultures are pending. PLAN: Continue with IV antibiotics. Continue with supportive care. The patient did receive Neulasta as a part of her last chemotherapy, so I do not think that additional colony-stimulating support is indicated. Our service will follow with you. /[id number]/MODL MTDD
--- NOTE | 2017-07-30 11:26 | CPEKG ---
Heart Rate: 88 RR Interval: 682 P-R Interval: 176 QRSD Interval: 90 QT Interval: 356 QTC Interval: 431 P [place]: 46 QRS [place]: -18 T Wave [place]: 63 EKG Severity - OTHERWISE NORMAL ECG - EKG Impression: SINUS RHYTHM EKG Impression: BORDERLINE LEFT AXIS DEVIATION Electronically Signed By: Matias Parr 31-Jul-2017 09:46:21
[2017-07-30] MEDS: CEFEPIME HCL 2 GM in D5W 100 ML IV SCH ×2 (11:39→18:02)
[2017-07-30] MEDS: KETOROLAC 15 MG/1 ML SDV IM SCH ×4 (11:53→18:02)
[2017-07-30] MEDS: ACETAMINOPHEN 325 MG TAB PO PRN ×4 (11:53→22:04)
[2017-07-30] MEDS: POTASSIUM Cl (KCl) 100 ML IV SCH ×4 (11:54→12:22)
[2017-07-30] MEDS: BENZONATATE 100 MG CAP PO PRN ×4 (12:02→22:00)
[2017-07-30] MEDS ORDERED: POTASSIUM CL 20 MEQ TAB PO ONE ×2 (12:18)
[2017-07-30] MEDS: FAMOTIDINE 20 MG/NACL 50 ML IV SCH ×4 (12:29→21:57)
--- NOTE | 2017-07-30 15:41 | ASMTCASEMG ---
Type Of Residence What kind of residence do Answers: House you live in? Case Management Evaluation Functional: Able to Answers: Yes return Home with Prior Level of Function/Care Discharge Plan Comments Coordination Status Comments Notes: Met with patient to offer support. Patient said she has been feeling very bad but thinks she is a little better since starting IV antibiotics. Patient said she has asked family to not come at this time because she doesnt want to get sick from them and doesnt want them to be exposed to something she has. Offered support while she is here in hospital and pt expressed appreciation knowing that social work is here. Case management will follow. Date Signed: 07/30/2017 03:40 PM Electronically Signed By:KALA Willis
[2017-07-30 19:45] VITALS: RESP 18
[2017-07-30] MEDS ORDERED: ZOLPIDEM TARTRATE 5 MG TAB PO SCH ×2 (21:00)
[2017-07-30] MEDS ORDERED: NON-FORMULARY NEW DRUG (Zolpidem Tartrate [Ambien 10 Mg] 10 MG) PO SCH ×2 (21:00)
[2017-07-30] MEDS: valACYclovir 500 MG TAB PO SCH ×2 (22:00)
[2017-07-31] MEDS: KETOROLAC 15 MG/1 ML SDV IM SCH ×6 (01:27→12:09)
[2017-07-31] MEDS: NS 1,000 ML IV SCH ×2 (01:29)
[2017-07-31] MEDS: CEFEPIME HCL 2 GM in D5W 100 ML IV SCH ×2 (02:38→10:41)
[2017-07-31 03:10] VITALS: O2SAT 92
[2017-07-31 04:58] LABS: PLATELET COUNT 197 10^3/uL (150-400)
[2017-07-31 08:59] VITALS: BP 117/74; PULSE 72; TEMP 99.4
[2017-07-31] MEDS ORDERED: Herbals/Supplements -Info Only PO SCH ×2 (09:00)
[2017-07-31] MEDS ORDERED: CETIRIZINE 10 MG TAB PO SCH ×2 (09:00)
[2017-07-31] MEDS ORDERED: MULTIVITAMIN PO SCH ×2 (09:00)
[2017-07-31] MEDS ORDERED: MULTIVITAMINS 1 EACH TAB PO SCH ×2 (09:00)
[2017-07-31] MEDS ORDERED: NON-FORMULARY NEW DRUG (Loratadine [Claritin 10 Mg] 10 MG) PO SCH ×2 (09:00)
[2017-07-31] MEDS: FAMOTIDINE 20 MG/NACL 50 ML IV SCH ×2 (09:36)
[2017-07-31] MEDS: BENZONATATE 100 MG CAP PO PRN ×2 (09:37)
[2017-07-31] MEDS: DULoxetine 60 MG CAP PO SCH ×2 (09:37)
[2017-07-31] MEDS: valACYclovir 500 MG TAB PO SCH ×2 (09:37)
--- NOTE | 2017-07-31 10:21 | HOSPPROG ---
Hospitalist Progress Note Assessment/Plan: #Neutropenic fever: + parainfluenza. Supportive care, cough suppressant. PPX LQ outpatient #Hypokalemia: replete. Check mag #Syncope: suspect vasovagal response with retching. Denies CP/SOB, no known heart disease. Negative trop and EKG. Orthostatics normal #HTN: stable for now. Readd home meds if elevated #Invasive ductal breast cancer: last chemo 12 days ago. H/H stable. PPx valcyclovir #Seasonal allergies: loratadine #Depression: Cymbalta #Diet: regular #DVT ppx: SCDs #Disp:DC today Subjective: feels much better. No CP, SOB, palps Objective: Vital Signs Temp Pulse Resp BP Pulse Ox 37.4 C 72 18 117/74 92 07/31/17 08:58 07/31/17 08:58 07/31/17 08:58 07/31/17 08:58 07/31/17 08:58 Laboratory Results 07/31/17 04:44 07/31/17 04:44 07/30/17 07/31/17 08/01/17 06:59 05:59 05:59 Intake Total Output Total Balance - Physical Exam Constitutional: other (appears brighter) Eyes: PERRL Ears, Nose, Mouth, Throat: moist mucous membranes, hearing normal, other (no exudate or erythema) Respiratory: no respiratory distress, no rales or rhonchi Gastrointestinal: normoactive bowel sounds Genitourinary: no bladder fullness Skin: warm, No rash Musculoskeletal: full muscle strength Neurologic: AAOx3, CN II-XII Intact Psychiatric: interacting appropriately ICD10 Worksheet Patient Problems: Problems Problem Status Onset Neutropenic fever Acute
--- NOTE | 2017-07-31 11:20 | SOAPPROG ---
SOAP Progress Note Assessment/Plan: Assessment: 1. Breast cancer, stage 1 triple negative on adjuvant tc 2.neutropenia with fever, resolving 3. para influenza Plan:She feels much better and wbc is improving, I think symptoms related to viral syndrome and she could go home, would cover with 3 days levaquin which should allow wbc to recover, follow up CC this week. She did not receive neulasta with last chemo 07/31/17 11:17 07/31/17 11:20 Subjective: Feels much better Objective: Vital Signs Temp Pulse Resp BP Pulse Ox 99.4 F 72 18 117/74 92 07/31/17 08:58 07/31/17 08:58 07/31/17 08:58 07/31/17 08:58 07/31/17 08:58 Laboratory Results 07/31/17 04:44 07/31/17 04:44 07/30/17 07/31/17 08/01/17 06:59 05:59 05:59 Intake Total Output Total Balance ICD10 Worksheet Patient Problems: Problems Problem Status Onset Neutropenic fever Acute
--- NOTE | 2017-07-31 14:57 | GDS ---
[f rep st] DISCHARGE SUMMARY DISCHARGE DIAGNOSES: 1. Neutropenic fever. 2. Parainfluenza upper respiratory infection. 3. Breast cancer, triple negative on adjuvant treatment. 4. Hypokalemia. 5. Nausea, vomiting. 6. Syncope. HISTORY OF PRESENT ILLNESS: A very pleasant 62-year-old female with history of invasive ductal carcinoma left breast, who is on 3rd cycle of chemotherapy, presenting with 1-2 days of fevers. She had a temperature of a 102 at home along with a dry cough, rhinorrhea and sore throat and laryngitis. She had such a persistent cough that she lost consciousness for a couple minutes. She did not have any prodromal symptoms including chest pain, palpitations, dizziness, or lightheadedness. HOSPITAL COURSE BY PROBLEM: 1. Neutropenic fever: Suspect secondary to parainfluenza upper respiratory infection. Chest x-ray negative. Blood cultures remain negative. Supportive treatment. She was treated broadly here with vanc and cefepime. Will continue prophylaxis treatment with Levaquin given neutropenia. 2. Parainfluenza upper respiratory infection: Supportive care with plenty of fluids, cough suppressants. 3. Nausea and vomiting: Wrote a script for Compazine. 4. Syncope: Suspect this is secondary of excessive coughing. She denies any chest pain or shortness of breath. Troponin and EKG were negative for ischemia. If has recurrent event, would recommend echocardiogram. 5. Hypokalemia secondary to decreased p.o. intake. This was repleted. 6. Normocytic anemia, likely secondary to chemotherapy. No indication for transfusion. 7. Depression. Continue Cymbalta. 8. Hypertension. Held the BP med here but she may resume tomorrow. 9. Breast cancer: tx per oncology DISPOSITION: Patient is stable for discharge home with her family. She was given strict return precautions. NEW MEDICATIONS: 1. Tessalon Perles. 2. Levaquin 700 mg for 3 days. 3. Compazine as needed. FOLLOWUP: With her primary oncologist. Time spent on DC> 35 min discussing medications, supportive care measures at [facility] /[id number]/MODL MTDD
--- NOTE | 2017-07-31 15:40 | ASDISCHSUM ---
Discharge Information Plan Status:Home with No Needs Medically Cleared to Leave: Discharge Date:07/31/2017 01:14 PM CM D/C Disposition:Home, Routine, Self-Care ADT D/C Disposition:Home, Routine, Self-Care Projected Discharge Date:07/31/2017 01:14 PM Transportation at D/C: Discharge Delay Reason: Follow-Up Date:07/31/2017 01:14 PM Discharge Slot: Final Diagnosis: Placement Information Patient Contact Information Contact Name:BHARAT Relationship: Address:[address] Work Phone: City:[place] Alternate Phone: State/Zip Code:[place] [address] Email: Financial Information Financial Class:[employer] Primary Plan Desc:MICHAEL GAYLE Primary Plan Number:[id number] Secondary Plan Desc: Secondary Plan Number: Assessment Information [facility] Initial CM Assessment Type Of Residence What kind of residence do Answers: House you live in? Case Management Evaluation Functional: Able to Answers: Yes return Home with Prior Level of Function/Care Discharge Plan Comments Coordination Status Comments Notes: Met with patient to offer support. Patient said she has been feeling very bad but thinks she is a little better since starting IV antibiotics. Patient said she has asked family to not come at this time because she doesnt want to get sick from them and doesnt want them to be exposed to something she has. Offered support while she is here in hospital and pt expressed appreciation knowing that social work is here. Case management will follow. Date Signed: 07/30/2017 03:40 PM Electronically Signed By:KALA Willis Intervention Information
--- NOTE | 2017-07-31 15:40 | ASDISCHSUM ---
Discharge Information Plan Status:Home with No Needs Medically Cleared to Leave: Discharge Date:07/31/2017 01:14 PM CM D/C Disposition:Home, Routine, Self-Care ADT D/C Disposition:Home, Routine, Self-Care Projected Discharge Date:07/31/2017 01:14 PM Transportation at D/C: Discharge Delay Reason: Follow-Up Date:07/31/2017 01:14 PM Discharge Slot: Final Diagnosis: Placement Information Patient Contact Information Contact Name:BHARAT Relationship: Address:[address] Work Phone: City:[place] Alternate Phone: State/Zip Code:[place] [address] Email: Financial Information Financial Class:[employer] Primary Plan Desc:MICHAEL GAYLE Primary Plan Number:[id number] Secondary Plan Desc: Secondary Plan Number: Assessment Information [facility] Initial CM Assessment Type Of Residence What kind of residence do Answers: House you live in? Case Management Evaluation Functional: Able to Answers: Yes return Home with Prior Level of Function/Care Discharge Plan Comments Coordination Status Comments Notes: Met with patient to offer support. Patient said she has been feeling very bad but thinks she is a little better since starting IV antibiotics. Patient said she has asked family to not come at this time because she doesnt want to get sick from them and doesnt want them to be exposed to something she has. Offered support while she is here in hospital and pt expressed appreciation knowing that social work is here. Case management will follow. Date Signed: 07/30/2017 03:40 PM Electronically Signed By:KALA Willis Intervention Information
--- NOTE | 2017-07-31 15:40 | ASDISCHSUM ---
Discharge Information Plan Status:Home with No Needs Medically Cleared to Leave: Discharge Date:07/31/2017 01:14 PM CM D/C Disposition:Home, Routine, Self-Care ADT D/C Disposition:Home, Routine, Self-Care Projected Discharge Date:07/31/2017 01:14 PM Transportation at D/C: Discharge Delay Reason: Follow-Up Date:07/31/2017 01:14 PM Discharge Slot: Final Diagnosis: Placement Information Patient Contact Information Contact Name:BHARAT Relationship: Address:[address] Work Phone: City:[place] Alternate Phone: State/Zip Code:[place] [address] Email: Financial Information Financial Class:[employer] Primary Plan Desc:MICHAEL GAYLE Primary Plan Number:[id number] Secondary Plan Desc: Secondary Plan Number: Assessment Information [facility] Initial CM Assessment Type Of Residence What kind of residence do Answers: House you live in? Case Management Evaluation Functional: Able to Answers: Yes return Home with Prior Level of Function/Care Discharge Plan Comments Coordination Status Comments Notes: Met with patient to offer support. Patient said she has been feeling very bad but thinks she is a little better since starting IV antibiotics. Patient said she has asked family to not come at this time because she doesnt want to get sick from them and doesnt want them to be exposed to something she has. Offered support while she is here in hospital and pt expressed appreciation knowing that social work is here. Case management will follow. Date Signed: 07/30/2017 03:40 PM Electronically Signed By:KALA Willis Intervention Information
== END 2017-07-31 13:14 | disposition home or self-care (01) | DRG 810 ==
LOC: F1N 04:16
PROVIDERS: ADMIT Family Medicine; ATTEND Family Medicine
DX: D70.9 Neutropenia, unspecified (principal); J06.9 Acute upper respiratory infection, unspecified; B34.8 Other viral infections of unspecified site; C50.412 Malignant neoplasm of upper-outer quadrant of left female breast; I10 Essential (primary) hypertension; E78.5 Hyperlipidemia, unspecified; E87.6 Hypokalemia; D64.81 Anemia due to antineoplastic chemotherapy; F32.9 Major depressive disorder, single episode, unspecified; E86.0 Dehydration; Z80.3 Family history of malignant neoplasm of breast
CPT/HCPCS: 96365; 97161-GP; J0133; J0692; J1885; J2550

== ENCOUNTER → 2017-10-24 | Outpatient (CLI) | payer OTHER | LOC: FIMAGING 14:59 | PROVIDERS: ATTEND Radiology Radiation Oncology | DX: Z12.31 Encounter for screening mammogram for malignant neoplasm of breast (principal); Z80.3 Family history of malignant neoplasm of breast ==

== ENCOUNTER → 2018-01-30 | Outpatient (CLI) | payer OTHER | LOC: BRMIMAGING 14:49 | PROVIDERS: ATTEND Family Medicine | DX: Z13.820 Encounter for screening for osteoporosis (principal); M85.89 Other specified disorders of bone density and structure, multiple sites; Z78.0 Asymptomatic menopausal state ==

== ENCOUNTER → 2018-11-08 | Outpatient (CLI) | payer OTHER | LOC: FIMAGING 14:50 | PROVIDERS: ATTEND Internal Medicine Hematology & Oncology | DX: Z12.31 Encounter for screening mammogram for malignant neoplasm of breast (principal); Z85.3 Personal history of malignant neoplasm of breast ==